=== PATIENT | female | born 1990 | race Hispanic/Latino ===

== ENCOUNTER 2019-12-12 13:01 | Emergency (ER) | payer SELFPAY ==
[2019-12-12] MEDS ORDERED: NA CHLORIDE 0.9% 1,000 ML ONE (14:00)
[2019-12-12 14:08] LABS: Absolute Lymphocytes (CBC) 2.1 K/uL (0.7-4.9); Basophils % 0.7 % (0-1.3); Hematocrit 42.4 % (36.0-45.0); Lymphocytes % 21.4 % (15.3-44.8); MPV 8.7 fL (7.6-11.3); Protime INR 1.29
[2019-12-12 14:12] LABS: Urine Blood NEGATIVE (NEG); Urine Glucose NEGATIVE (NEG); Urine Protein NEGATIVE (NEG); Urine Specific Gravity 1.025 (1.005-1.030); Urine pH 6.5 (5.0-7.0)
[2019-12-12 14:22] LABS: ALT/SGPT 23 U/L (12-78); AST/SGOT 13 U/L (15-37); Albumin 3.3 g/dL (3.4-5.0); Alkaline Phosphatase 86 U/L (45-117); BUN Blood Urea Nitrogen 7 mg/dL (7-18); Bicarbonate 25 mmol/L (21-32); Bilirubin Direct < 0.1 mg/dL (0-0.2); Bilirubin Total 0.2 mg/dL (0.2-1.0); Glucose Level 122 mg/dL (74-106); Lipase 108 U/L (73-393); Magnesium 1.9 mg/dL (1.8-2.4); NT PRO-BNP 63 pg/mL (<125); Potassium 3.2 mmol/L (3.5-5.1); Protein, Total 8.7 g/dL (6.4-8.2); Sodium Level 138 mmol/L (136-145); Troponin (Emerg Dept Use Only) < 0.02 ng/mL (0.0-0.045)
--- NOTE | 2019-12-12 15:09 | RAD REPORT ---
EXAM DESCRIPTION: CT - Chest For Pe Angio - 12/12/2019 2:42 pm CLINICAL HISTORY: sob COMPARISON: None. TECHNIQUE: Dynamically enhanced axial 3 mm thick images of the chest were obtained during administra tion of <100> mL Isovue 370 IV contrast. Coronal and oblique reconstruction images were generated and reviewed. Exam utilizes a protocol for optimal evaluation of pulmonary arterial tree. Maximum intensity projections 3D imaging was utilized All CT scans are performed using dose optimization technique as appropriate and may include automated exposure control or mA/KV adjustment according to patient size. FINDINGS: A pulmonary embolus is not seen. A thoracic aortic aneurysm is not noted. A pleural effusion is not seen. A pericardial effusion is not seen. A lung consolidation is not present. IMPRESSION: Negative for a pulmonary embolism.
--- NOTE | 2019-12-12 15:10 | RAD REPORT ---
EXAM DESCRIPTION: Rochelle Single View12/12/2019 2:47 pm CLINICAL HISTORY: cough COMPARISON: 2011 FINDINGS: The lungs appear clear of acute infiltrate. The heart is normal size IMPRESSION: No acute abnormalities displayed
--- NOTE | 2019-12-12 15:36 | ER ---
Nurse's Notes [facility] Name: Candi Oliva Age: 29 yrs Sex: Female : 1990 Arrival Date: 12/12/2019 Time: 13:03 Bed 7 Private MD: Diagnosis: Dyspnea;Hypokalemia Presentation: 12/11 13:11 Chief complaint: Patient states: unable to take a deep breath since this morning. ss Denies cough/ fever. Coronavirus screen: Patient denies fever greater than 100.4F, cough, shortness of breath, or difficulty breathing. Proceed with normal triage process. Ebola Screen: Patient denies exposure to infectious person. Patient denies travel to an Ebola-affected area in the 21 days before illness onset. Initial Sepsis Screen: Does the patient meet any 2 criteria? No. Patient's initial sepsis screen is negative. Does the patient have a suspected source of infection? No. Patient's initial sepsis screen is negative. Risk Assessment: Do you want to hurt yourself or someone else? Patient reports no desire to harm self or others. 13:11 Method Of Arrival: Ambulatory ss 13:11 Acuity: JESSICA 4 ss Triage Assessment: 13:15 General: Appears in no apparent distress. comfortable, Behavior is cooperative, bp appropriate for age, anxious. Pain: Denies pain. EENT: No deficits noted. Neuro: No deficits noted. Cardiovascular: No deficits noted. Respiratory: Reports shortness of breath Onset: The symptoms/episode began/occurred this morning, the patient reports symptoms have resolved. GI: No signs and/or symptoms were reported involving the gastrointestinal system. : No signs and/or symptoms were reported regarding the genitourinary system. Derm: No deficits noted. Musculoskeletal: No deficits noted. Historical: - Allergies: 13:12 No Known Allergies; ss - Home Meds: 13:12 None [Active]; ss - PMHx: 13:12 None; ss - PSHx: 13:12 ; ss - Immunization history:: Adult Immunizations up to date. - Social history:: Smoking status: Patient denies any tobacco usage or history of. Screenin:27 Abuse screen: Denies threats or abuse. Denies injuries from another. Nutritional bp screening: No deficits noted. Tuberculosis screening: No symptoms or risk factors identified. Fall Risk None identified. Assessment: 13:15 General: SEE TRIAGE NOTE. bp 13:15 Cardiovascular: Rhythm is sinus rhythm. Respiratory: Airway is patent Respiratory bp effort is even, unlabored, Breath sounds are clear bilaterally. 14:17 Reassessment: NO ACUTE S/S NOTED. PT VS STABLE. CT PENDING. bp 15:53 Reassessment: D/C ON HOLD FOR IVF COMPLETION. bp 16:31 Reassessment: PT D/C HOME AMBULATORY, DX WITH DYSPNEA AND HYPOKALEMIA. bp Vital Signs: 13:11 BP 140 / 82; Pulse 92; Resp 16; Temp 98.9(TE); Pulse Ox 100% on R/A; Weight 88.45 kg; ss Height 5 ft. 2 in. (157.48 cm); Pain 0/10; 14:00 BP 121 / 73; Pulse 87; Resp 16; Pulse Ox 98% ; bp 15:00 BP 104 / 65; Pulse 87; Resp 12; Pulse Ox 100% ; bp 15:58 BP 110 / 76; Pulse 81; Resp 13; Pulse Ox 100% ; bp 16:31 BP 101 / 62; Pulse 85; Resp 18; Temp 97.9; Pulse Ox 98% ; bp 13:11 Body Mass Index 35.67 (88.45 kg, 157.48 cm) ss ED Course: 13:03 Patient arrived in ED. am2 13:12 Triage completed. ss 13:12 Arm band placed on right wrist. ss 13:25 Brock Gibbs, RN is Primary Nurse. bp 13:26 Han Finch MD is Attending Physician. skinny 13:27 Patient has correct armband on for positive identification. Bed in low position. Call bp light in reach. Side rails up X2. 13:45 Urine collected: clean catch specimen, clear. dh3 13:50 Radiology exam delayed due to lab results not completed at this time. (BUN/Creatinine) mw3 test not completed at this time. 13:50 Inserted saline lock: 20 gauge in right antecubital area, using aseptic technique. bp Blood collected. 14:25 EKG done, by ED staff, reviewed by Han Finch MD. dh3 14:42 CT Chest For PE Angio In Process Unspecified. EDMS 14:43 CT completed. Patient tolerated procedure well. Patient moved back from CT. bq 14:47 XRAY Chest (1 view) In Process Unspecified. EDMS 15:35 Robe Becerra MD is Referral Physician. skinny 16:33 No provider procedures requiring assistance completed. IV discontinued, intact, bp bleeding controlled, No redness/swelling at site. Pressure dressing applied. Administered Medications: 13:58 Drug: NS 0.9% 1000 ml Route: IV; Rate: 1 bolus; Site: right antecubital; bp 16:33 Follow up: IV Status: Completed infusion bp 15:00 Drug: Potassium Effervescent Tablet 25 mEq Route: PO; bp 15:52 Follow up: Response: No adverse reaction bp Outcome: 15:35 Discharge ordered by . skinny 16:33 Discharged to home ambulatory. bp 16:33 Condition: stable 16:33 Discharge instructions given to patient, Instructed on discharge instructions, follow up and referral plans. Demonstrated understanding of instructions, follow-up care. 16:34 Patient left the ED. bp Signatures: Dispatcher [employer] EDMS Han Finch MD MD cha Quilty, Betty Beba Carney RN RN Monica Wade formerly [facility] Anum Rivera 3 Brock Gibbs RN RN bp Corin Otoole mw3 Corrections: (The following items were deleted from the chart) 13:48 13:47 BP 121 / 69; Pulse 78bpm; Resp 16bpm; Pulse Ox 100%; bp bp
--- NOTE | 2019-12-12 15:36 | EDPHYS ---
Physician Documentation [facility] Name: Candi Oliva Age: 29 yrs Sex: Female : 1990 Arrival Date: 12/12/2019 Time: 13:03 Bed 7 Private MD: DAVIS Physician Han Finch HPI: 12/11 13:38 This 29 yrs old Female presents to ER via Ambulatory with complaints of skinny Shortness Of Breath. 13:38 The patient has shortness of breath at rest. Onset: The symptoms/episode began/occurred skinny this morning. Duration: The symptoms are continuous, and are unchanged since they started. The patient's shortness of breath has no apparent modifying factors. Associated signs and symptoms: The patient has no apparent associated signs or symptoms. Severity of symptoms: At their worst the symptoms were. The patient has not experienced similar symptoms in the past. Historical: - Allergies: 13:12 No Known Allergies; ss - Home Meds: 13:12 None [Active]; ss - PMHx: 13:12 None; ss - PSHx: 13:12 ; ss - Immunization history:: Adult Immunizations up to date. - Social history:: Smoking status: Patient denies any tobacco usage or history of. ROS: 13:39 Constitutional: Negative for fever, chills, and weight loss, Eyes: Negative for injury, skinny pain, redness, and discharge, ENT: Negative for injury, pain, and discharge, Neck: Negative for injury, pain, and swelling, Cardiovascular: Negative for chest pain, palpitations, and edema, Abdomen/GI: Negative for abdominal pain, nausea, vomiting, diarrhea, and constipation, Back: Negative for injury and pain, : Negative for injury, bleeding, discharge, and swelling, MS/Extremity: Negative for injury and deformity, Skin: Negative for injury, rash, and discoloration, Neuro: Negative for headache, weakness, numbness, tingling, and seizure, Psych: Negative for depression, anxiety, suicide ideation, homicidal ideation, and hallucinations, Allergy/Immunology: Negative for hives, rash, and allergies, Endocrine: Negative for neck swelling, polydipsia, polyuria, polyphagia, and marked weight changes, Hematologic/Lymphatic: Negative for swollen nodes, abnormal bleeding, and unusual bruising. 13:39 Respiratory: Positive for shortness of breath. Exam: 13:39 Constitutional: This is a well developed, well nourished patient who is awake, alert, skinny and in no acute distress. Head/Face: Normocephalic, atraumatic. Eyes: Pupils equal round and reactive to light, extra-ocular motions intact. Lids and lashes normal. Conjunctiva and sclera are non-icteric and not injected. Cornea within normal limits. Periorbital areas with no swelling, redness, or edema. ENT: Nares patent. No nasal discharge, no septal abnormalities noted. Tympanic membranes are normal and external auditory canals are clear. Oropharynx with no redness, swelling, or masses, exudates, or evidence of obstruction, uvula midline. Mucous membranes moist. Neck: Trachea midline, no thyromegaly or masses palpated, and no cervical lymphadenopathy. Supple, full range of motion without nuchal rigidity, or vertebral point tenderness. No Meningismus. Chest/axilla: Normal chest wall appearance and motion. Nontender with no deformity. No lesions are appreciated. Cardiovascular: Regular rate and rhythm with a normal S1 and S2. No gallops, murmurs, or rubs. Normal PMI, no JVD. No pulse deficits. Respiratory: Lungs have equal breath sounds bilaterally, clear to auscultation and percussion. No rales, rhonchi or wheezes noted. No increased work of breathing, no retractions or nasal flaring. Abdomen/GI: Soft, non-tender, with normal bowel sounds. No distension or tympany. No guarding or rebound. No evidence of tenderness throughout. Back: No spinal tenderness. No costovertebral tenderness. Full range of motion. Skin: Warm, dry with normal turgor. Normal color with no rashes, no lesions, and no evidence of cellulitis. MS/ Extremity: Pulses equal, no cyanosis. Neurovascular intact. Full, normal range of motion. Neuro: Awake and alert, GCS 15, oriented to person, place, time, and situation. Cranial nerves II-XII grossly intact. Motor strength 5/5 in all extremities. Sensory grossly intact. Cerebellar exam normal. Normal gait. Psych: Awake, alert, with orientation to person, place and time. Behavior, mood, and affect are within normal limits. 13:39 Musculoskeletal/extremity: DVT Exam: No signs of deep vein thrombosis. no pain, no swelling, no tenderness, negative Homans' sign noted on exam, no appreciated bluish discoloration, no erythema, no increased warmth. Vital Signs: 13:11 BP 140 / 82; Pulse 92; Resp 16; Temp 98.9(TE); Pulse Ox 100% on R/A; Weight 88.45 kg; ss Height 5 ft. 2 in. (157.48 cm); Pain 0/10; 14:00 BP 121 / 73; Pulse 87; Resp 16; Pulse Ox 98% ; bp 15:00 BP 104 / 65; Pulse 87; Resp 12; Pulse Ox 100% ; bp 15:58 BP 110 / 76; Pulse 81; Resp 13; Pulse Ox 100% ; bp 16:31 BP 101 / 62; Pulse 85; Resp 18; Temp 97.9; Pulse Ox 98% ; bp 13:11 Body Mass Index 35.67 (88.45 kg, 157.48 cm) ss MDM: 13:26 Patient medically screened. [facility] 13:40 Data reviewed: vital signs, nurses notes, EMS record, lab test result(s), EKG, skinny radiologic studies. 12/11 13:35 Order name: Basic Metabolic Panel; Complete Time: 14:33 [facility] 12/11 13:35 Order name: CBC with Diff; Complete Time: 15:35 skinny 12/11 13:35 Order name: LFT's; Complete Time: 14:33 skinny 12/11 13:35 Order name: Magnesium; Complete Time: 14:33 skinny 12/11 13:35 Order name: NT PRO-BNP; Complete Time: 14:33 skinny 12/11 13:35 Order name: PT-INR; Complete Time: 15:35 [facility] 12/11 13:35 Order name: Troponin (emerg Dept Use Only); Complete Time: 14:33 skinny 12/11 13:35 Order name: XRAY Chest (1 view); Complete Time: 15:35 [facility] 12/11 13:35 Order name: Lipase; Complete Time: 14:33 skinny 12/11 13:35 Order name: Urine Culture [facility] 12/11 14:11 Order name: Urine Dipstick--Ancillary (enter results) ms 12/11 14:11 Order name: Urine --Ancillary (enter results) ms 12/11 14:13 Order name: Urine --Ancillary; Complete Time: 14:33 EDMS 12/11 14:13 Order name: Urine Dipstick-Ancillary; Complete Time: 14:33 [facility] 12/11 13:35 Order name: EKG; Complete Time: 13:37 [facility] 12/11 13:35 Order name: Cardiac monitoring; Complete Time: 13:46 [facility] 12/11 13:35 Order name: EKG - Nurse/Tech; Complete Time: 13:58 [facility] 12/11 13:35 Order name: IV Saline Lock; Complete Time: 13:53 [facility] 12/11 13:35 Order name: Labs collected and sent; Complete Time: 13:53 [facility] 12/11 13:35 Order name: O2 Per Protocol; Complete Time: 13:47 [facility] 12/11 13:35 Order name: O2 Sat Monitoring; Complete Time: 13:47 [facility] 12/11 13:35 Order name: Urine Dipstick-Ancillary (obtain specimen); Complete Time: 13:58 [facility] 12/11 13:35 Order name: Urine Test (obtain specimen); Complete Time: 13:58 [facility] 12/11 13:35 Order name: CT Chest For PE Angio; Complete Time: 15:35 [facility] Administered Medications: 13:58 Drug: NS 0.9% 1000 ml Route: IV; Rate: 1 bolus; Site: right antecubital; bp 16:33 Follow up: IV Status: Completed infusion bp 15:00 Drug: Potassium Effervescent Tablet 25 mEq Route: PO; bp 15:52 Follow up: Response: No adverse reaction bp Disposition: 12/12/19 15:35 Discharged to Home. Impression: Dyspnea, Hypokalemia. - Condition is Stable. - Discharge Instructions: Potassium Content of Foods, Shortness of Breath, Shortness of Breath, [id number], Hypokalemia. - Medication Reconciliation Form, Thank You Letter, Antibiotic Education, Prescription Opioid Use form. - Follow up: Private Physician; When: 2 - 3 days; Reason: Recheck today's complaints, Continuance of care, Re-evaluation by your physician. Follow up: Robe Becerra; When: 2 - 3 days; Reason: Recheck today's complaints, Continuance of care, Re-evaluation by your physician. - Problem is new. - Symptoms have improved. Signatures: Dispatcher [employer] Han Rubio MD MD cha Smirch, Shelby, RN RN ss Brock Gibbs RN RN bp Corrections: (The following items were deleted from the chart) 16:34 15:35 12/12/2019 15:35 Discharged to Home. Impression: Dyspnea; Hypokalemia. Condition bp is Stable. Discharge Instructions: Shortness of Breath, Shortness of Breath, [id number], Potassium Content of Foods, Hypokalemia. Forms are Medication Reconciliation Form, Thank You Letter, Antibiotic Education, Prescription Opioid Use. Follow up: Private Physician; When: 2 - 3 days; Reason: Recheck today's complaints, Continuance of care, Re-evaluation by your physician. Follow up: Robe Becerra; When: 2 - 3 days; Reason: Recheck today's complaints, Continuance of care, Re-evaluation by your physician. Problem is new. Symptoms have improved. skinny
[2019-12-12] MEDS ORDERED: POTASSIUM 25 MEQ EFFERV TAB ONE (15:49)
[2019-12-12 16:50] VITALS: BP 101/62; TEMP 97.9; O2SAT 98
--- NOTE | 2019-12-14 05:28 | EKG ---
Test Date: 2019-12-12 Test Time: 14:18:47 Print Cutter: BOLA MEASUREMENT RESULTS: Intervals: Rate: 72 ME: 152 QRSD: 94 QT: 388 QTc: 424 [place]: P: 4 ME: 152 QRS: 49 T: 43 INTERPRETIVE STATEMENTS: Normal sinus rhythm Incomplete right bundle branch block Borderline ECG No previous ECG available for comparison Electronically Signed On 12-14-19 05:25:34 CDT by Kavon Houston
== END 2019-12-12 16:34 | disposition home or self-care (01) ==
LOC: ER 13:01
DX: E87.6 Hypokalemia (principal)
CPT/HCPCS: 36415; 71045; 71275; 80048; 80076; 81003; 81025; 83690; 83735; 83880; 84484; 85025; 85610; 87086; 87088; 93005; 96360; 96361; 99285; J7030; Q9967

== ENCOUNTER 2021-03-08 18:17 | Emergency (ER) | payer OTHER, SELFPAY ==
--- OUTSIDE RECORDS SUMMARY | 2021-03-08 18:20 | XMS REPORT | Continuity of Care Document ---
:1990 Author Organization [facility] t Address [address] [place] [address] Care Team Providers Name Role Phone Visit, Nurse Attending Clinician Unavailable Tyrone Medeiros DO Attending Clinician Ana Chandra Attending Clinician Doctor Unassigned, Name Attending Clinician Unavailable Erick QUINTANILLA Attending Clinician Problems This patient has no known problems. Allergies, Adverse Reactions, Alerts This patient has no known allergies or adverse reactions. Medications This patient has no known medications. Procedures This patient has no known procedures. Encounters Start End Encounter Admission Attending Care Care Encounter Source Date/Time Date/Time Type Type Clinicians Facility Department ID 2021-01-02 2021-01-02 Nurse Visit, [facility] [id number] 13:30:41 13:56:40 [facility] [place] [id number] Nurse [facility] [id number] MATERNAL [id number] & CHILD [address] [place] [address] 2020-12-05 2020-12-05 Patient JNUO Medeiros [id number] 00:00:00 00:00:00 Outreach [facility] [id number] [place] [facility] [id number] PAVILLION [id number] 2020-11-04 2020-11-04 Emergency [place], [facility] [id number] 19:09:00 21:07:00 Papi Perez Leslie [id number] [place] [id number] [place] [id number] 2020-10-11 2020-10-11 Nurse Visit, [facility] [id number] 10:17:52 10:40:[address] [facility] DIRECTOR MONEY [id number] Nurse REGIONAL [id number] MATERNAL [id number] & CHILD [address] [place] [address] 2020-08-22 2020-08-22 Orders Doctor DONNIE [id number] 00:00:00 00:00:00 Only Unassigned, [place] [id number] [place] [facility] [id number] 2020-08-16 2020-08-16 Office Erick, [facility] [id number] 14:16:20 14:52:32 Visit Viet Nelson [id number] [place] [id number] [place] [id number] nal 059 Building Results This patient has no known results.
[2021-03-08] MEDS ORDERED: ONDANSETRON 4 MG/2 ML VIAL ONE (21:38)
[2021-03-08] MEDS ORDERED: NA CHLORIDE 0.9% 1,000 ML ONE (21:38)
[2021-03-08] MEDS ORDERED: KETOROLAC 30 MG/ML INJ ONE (21:38)
[2021-03-08 21:44] LABS: Urine Blood Trace-intact (Negative); Urine Glucose Negative (Negative); Urine Protein Trace (Negative); Urine Specific Gravity >=1.030 (1.005-1.030); Urine pH 5.5 (5.0-7.0)
[2021-03-08 21:57] LABS: Urine Specific Gravity/Preg >1.030 (1.005-1.030)
[2021-03-08 22:05] LABS: Absolute Lymphocytes (CBC) 2.1 K/uL (0.7-4.9); Basophils % 0.4 % (0-1.3); Hematocrit 42.6 % (36.0-45.0); Lymphocytes % 12.1 % (15.3-44.8); MPV 8.7 fL (7.6-11.3); RBC Red Blood Cell Count 5.11 M/uL (3.86-4.86)
[2021-03-08 22:17] LABS: ALT/SGPT 25 U/L (12-78); AST/SGOT 9 U/L (15-37); Albumin 3.8 g/dL (3.4-5.0); Alkaline Phosphatase 110 U/L (45-117); BUN Blood Urea Nitrogen 10 mg/dL (7-18); Bicarbonate 27 mmol/L (21-32); Bilirubin Direct < 0.1 mg/dL (0-0.2); Bilirubin Total 0.3 mg/dL (0.2-1.0); Glucose Level 101 mg/dL (74-106); Lipase 103 U/L (73-393); Potassium 3.1 mmol/L (3.5-5.1); Protein, Total 10.1 g/dL (6.4-8.2); Sodium Level 139 mmol/L (136-145)
[2021-03-08] MEDS ORDERED: POTASSIUM 25 MEQ EFFERV TAB ONE (22:54)
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
[2021-03-08 23:55] VITALS: TEMP 98.4
[2021-03-08 23:58] VITALS: O2SAT 100
[2021-03-08 23:59] VITALS: BP 102/56
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
--- NOTE | 2021-03-09 08:15 | RAD REPORT ---
EXAM DESCRIPTION: RAD - Femur Left - 03/08/2021 10:15 pm CLINICAL HISTORY: Left leg pain . FINDINGS: Curvilinear lucency involves the distal left femur seen only on the frontal view. Most lik destinee it is not significant. A nondisplaced fracture is doubtful. However, if the patient continues to have pain in this region follow-up plain film series of the distal left femur would be recommended Remainder the exam is unremarkable
--- NOTE | 2021-03-09 08:42 | RAD REPORT ---
EXAM DESCRIPTION: RAD - Shoulder Left 2 View - 03/08/2021 10:15 pm CLINICAL HISTORY: Left shoulder pain FINDINGS: No fracture or dislocation is seen.
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
== END 2021-03-08 23:50 | disposition home or self-care (01) ==
LOC: ER 18:17
DX: S70.02XA Contusion of left hip, initial encounter (principal); E87.6 Hypokalemia; D72.829 Elevated white blood cell count, unspecified; V43.52XA Car driver injured in collision with other type car in traffic accident, initial encounter
CPT/HCPCS: 85025; 80048; 36415; 86900; 86850; 81025; 86901; 80076; 81003; 83690; 70450; 72125; 71260; 74177; 72170; 73030; 73552; Q9967; J7030; J2405